=== PATIENT | female | born 1995 | race Hispanic/Latino ===

== ENCOUNTER → 2025-01-03 | Outpatient (CLI) | payer BC ==
--- NOTE | 2025-01-03 15:34 | HMCIMG ---
US THYROID/NECK HISTORY: Enlarged thyroid COMPARISON: None TECHNIQUE: Thyroid ultrasound study was performed. FINDINGS: Right thyroid lobe measures 4.7 x 1.5 x 1.4 cm. Left thyroid lobe measures 3.6 x 1.4 x 1.4 cm. Thyroid gland is heterogeneous . No discrete thyroid nodule is seen. IMPRESSION: 1. No discrete thyroid nodule is seen. Heterogeneous thyroid.
== END | disposition home or self-care (01) ==
LOC: RAH 14:50
PROVIDERS: ATTEND Nurse Practitioner Family
DX: E04.9 Nontoxic goiter, unspecified (principal)
CPT/HCPCS: 76536